=== PATIENT | female | born 1980 | race Hispanic/Latino ===

== ENCOUNTER 2022-03-23 05:45 | Observation (INO) | payer OTHER ==
[2022-03-22 16:35] LABS: BASOPHILS % (AUTO) 0.2 % (0.0-5.0); EOSINOPHILS % (AUTO) 4.8 % (0.0-8.0); HEMATOCRIT 41.2 % (36-48); MEAN CORPUSCULAR HEMOGLOBIN 27.9 pg (27.0-33.0); MEAN CORPUSCULAR HGB CONC 32.3 g/dL (32.0-36.0); MEAN CORPUSCULAR VOLUME 86.4 fL (79-99); MONOCYTES % (AUTO) 6.3 % (3.0-13.0); NEUTROPHILS % (AUTO) 68.4 % (40.0-77.0); PLATELET COUNT (AUTO) 308 K/uL (130-400); RED BLOOD CELL COUNT(AUTO) 4.77 MIL/uL (4.00-5.50); RED CELL DISTRIBUTION WIDTH 13.4 % (11.0-15.5); WHITE BLOOD COUNT (AUTO) 9.8 K/uL (4.8-10.8)
[2022-03-22 16:39] LABS: APPEARANCE,URINE CLEAR (CLEAR); BILIRUBIN,URINE NEGATIVE (NEGATIVE); COLOR,URINE YELLOW (YELLOW); GLUCOSE, URINE (UA) >=1000 mg/dL (NEGATIVE); KETONES,URINE 5 mg/dL (NEGATIVE); LEUKOCYTE ESTERASE ,URINE NEGATIVE (NEGATIVE); NITRATE,URINE NEGATIVE (NEGATIVE); OCCULT BLOOD,URINE NEGATIVE (NEGATIVE); PROTEIN,URINE NEGATIVE (NEGATIVE); UROBILINOGEN,URINE 0.2 mg/dL (0.2-1.0)
[2022-03-22 16:44] LABS: CREATININE 0.7 mg/dL (0.5-1.5); POTASSIUM 3.8 mmol/L (3.5-5.1)
[2022-03-22 16:45] VITALS: BP 184/83
[2022-03-22 16:49] LABS: INR 0.93 (0.85-1.15); PROTHROMBIN TIME 9.6 SEC (9.6-11.6)
[2022-03-22 17:18] LABS: BACTERIA,URINE Few /HPF (None Seen); RBC,URINE 0-1 /HPF (0-1); SQUAMOUS EPITHELIAL CELL,UR Moderate /HPF (0-2)
[~2022-03-23] VITALS: Ht 162.6 cm; Wt 124.1 kg
[2022-03-23] VITALS (22 sets, daily range): BP systolic 126–177; BP diastolic 62–106
[~2022-03-23 05:45] MED LIST: GABA-529 PO; LOSA25TA41 PO; METF-444 PO; METO-408 PO; OMEP20CA12 PO; SEMA7TAB2 PO
[2022-03-23] MEDS ORDERED: CEFAZOLIN SODIUM 1 GM VIAL ONE (07:01)
[2022-03-23] MEDS ORDERED: 0.9%NACL 1000ML 1,000 ML IV ONE (07:02)
[2022-03-23] MEDS ORDERED: FAMOTIDINE 20MG VIAL IV ONE (09:52)
[2022-03-23] MEDS ORDERED: HYDROMORPHONE 1 MG INJ ONE (09:52)
[2022-03-23] MEDS ORDERED: MIDAZOLAM HCL 1 MG/ML 2ML VIAL ONE (09:53)
[2022-03-23] MEDS ORDERED: FENTANYL CITRATE PF 50 MCG/1 ML 5ML AMP IV ONE (10:16)
[2022-03-23] MEDS ORDERED: ROCURONIUM 10MG/1ML SYR 10 MG/ML ML ONE ×2 (10:16→11:46)
[2022-03-23] MEDS ORDERED: GLYCOPYRROLATE 1 MG/5 ML SYRINGE ONE (10:16)
[2022-03-23] MEDS ORDERED: PROPOFOL 10 MG/ML 20ML VIAL IV ONE (10:16)
[2022-03-23] MEDS ORDERED: LIDOCAINE PF 100MG/5ML (2%) SYRINGE 5ML ONE (10:18)
[2022-03-23] MEDS ORDERED: ONDANSETRON 4MG INJ ONE ×2 (11:28→14:08)
[2022-03-23] MEDS ORDERED: NEOSTIGMINE 5MG/5ML SYR IV ONE (13:34)
[2022-03-23] MEDS ORDERED: MEPERIDINE-PF 25 MG/ML SYG ONE (14:08)
[2022-03-23] MEDS ORDERED: IBUPROFEN 600 MG TABLET PO PRN (15:30)
[2022-03-23] MEDS ORDERED: PROMETHAZINE HCL 25 MG/ML 1ML AMPULE IM PRN ×2 (15:30)
[2022-03-23] MEDS ORDERED: ACETAMINOPHEN WITH CODEINE 1 TAB TAB PO PRN (15:30)
[2022-03-23] MEDS ORDERED: MEPERIDINE-PF 75 MG/ML SYG IM PRN (15:30)
[2022-03-23] MEDS ORDERED: BISACODYL 10 MG SUPP.RECT RC PRN (15:30)
[2022-03-23] MEDS ORDERED: ONDANSETRON 4MG INJ IVP PRN (15:30)
[2022-03-23] MEDS: LACTATED RINGERS 1000ML 1,000 ML IV SCH ×2 (15:41→23:38)
[2022-03-23] MEDS: INSULIN HUMULIN R 100 UNIT/ML 3ML SQ SCH ×2 (17:56→21:11)
[2022-03-23] MEDS: SIMETHICONE 80 MG TAB.CHEW PO PRN (21:15)
[2022-03-23] MEDS: DOCUSATE SODIUM 100 MG CAP PO PRN (21:15)
[2022-03-23] MEDS: METFORMIN HCL 500 MG TABLET PO SCH (21:15)
[2022-03-23] MEDS: GABAPENTIN 100 MG CAPSULE PO SCH (21:24)
[2022-03-24 03:05] VITALS: BP 130/77
[2022-03-24 05:10] LABS: MEAN CORPUSCULAR HEMOGLOBIN 28.4 pg (27.0-33.0); MEAN CORPUSCULAR HGB CONC 33.5 g/dL (32.0-36.0); MEAN CORPUSCULAR VOLUME 84.6 fL (79-99); RED BLOOD CELL COUNT(AUTO) 4.02 MIL/uL (4.00-5.50); RED CELL DISTRIBUTION WIDTH 13.5 % (11.0-15.5); WHITE BLOOD COUNT (AUTO) 11.7 K/uL (4.8-10.8)
[2022-03-24] MEDS ORDERED: IBUPROFEN 800 MG TAB PO PRN (06:00)
[2022-03-24] MEDS ORDERED: HYDROCODONE/ACETAMINOPHEN 5/325 MG TAB PO PRN (06:00)
[2022-03-24] MEDS: INSULIN HUMULIN R 100 UNIT/ML 3ML SQ SCH ×2 (07:30→12:01)
[2022-03-24 07:33] VITALS: BP 131/85
[2022-03-24] MEDS: SIMETHICONE 80 MG TAB.CHEW PO PRN (07:46)
[2022-03-24] MEDS: DOCUSATE SODIUM 100 MG CAP PO PRN (07:47)
[2022-03-24] MEDS: METFORMIN HCL 500 MG TABLET PO SCH (07:47)
[2022-03-24] MEDS ORDERED: PANTOPRAZOLE 40 MG TAB DR PO SCH (08:00)
[2022-03-24] MEDS: GABAPENTIN 100 MG CAPSULE PO SCH (09:00)
[2022-03-24] MEDS ORDERED: SEMAGLUTIDE 7 MG PO SCH (09:00)
[2022-03-24] MEDS ORDERED: METOPROLOL SUCCINATE 25 MG TAB.SR.24H PO SCH (09:00)
[2022-03-24] MEDS ORDERED: LOSARTAN 25 MG TABLET PO SCH (09:00)
== END 2022-03-24 13:20 | disposition home or self-care (01) ==
LOC: DAH 05:45 → INTOOBSV 05:46 → OBSVTOIN 05:46 → DAH 05:46 → DAHIP 05:46 → WSH 15:15
PROVIDERS: ADMIT Obstetrics & Gynecology; ATTEND Obstetrics & Gynecology
DX: N92.1 Excessive and frequent menstruation with irregular cycle (principal); Z20.822 Contact with and (suspected) exposure to COVID-19; D25.9 Leiomyoma of uterus, unspecified; N73.6 Female pelvic peritoneal adhesions (postinfective); E66.01 Morbid (severe) obesity due to excess calories; Z79.899 Other long term (current) drug therapy; Z98.890 Other specified postprocedural states; Z68.42 Body mass index [BMI] 45.0-49.9, adult
CPT/HCPCS: 80048; 84703; 85025; 85610; 85730; 86850; 86900; 86901; 87426; 81001; 36415 ×2; 58552; 96372 ×2; 82948 ×5; 85027; A6260; G0378 ×26; G0379; A4510; A4663; J7030 ×2; A4351; A4215 ×2; J3490 ×2; J3010; J0690; J1170; J2710; J2550; J2001; J2250; J2704; J2405 ×2; J2175 ×2; J1815 ×3; C1769 ×2; A4649 ×3; A4223; A4222; A4221; J7120 ×2